=== PATIENT | female | born 1995 | race Caucasian/White ===

== ENCOUNTER 2017-02-13 23:13 | Emergency (ER) | payer OTHER ==
[2017-02-13 23:42] VITALS: BP 136/86; PULSE 106; O2SAT 98
--- NOTE | 2017-02-14 00:06 | ERPHSYRPT ---
- History of Present Illness Time Seen by Provider: 02/14/17 00:01 Source: patient, family Exam Limitations: no limitations Patient Subjective Stated Complaint: patient went on vacatiopns traveled on planes , buses and stayted in hotel room now has rash on insides of legs and arms that itches profusely and is spreading on her body Triage Nursing Assessment: rash on body, insides of legs and on both arms, x5 days, itches and continues to spread bumps resemble scabies Physician History: pt had exposres traveling and now has outbreak like scabies; discussed treatmetn options and she wishes to proceed with topical antiscabies tx and also steroids for inflammation; she has no GI symptoms, no wheezing or resp or swallowing symptoms; Timing/Duration: day(s) Quality: itchy Severity: moderate Location: torso, hands, extremities, generalized Possible Causes: no cause identified Modifying Factors: Improves With: scratching Associated Symptoms: denies symptoms, rash Allergies/Adverse Reactions: aspirin [From Aspirin Regimen Jose Luis/Calcium] Allergy (Intermediate, Unverified 01/26/12 11:27) Hives calcium carbonate [From Aspirin Regimen Jose Luis/Calcium] Allergy (Intermediate, Unverified 01/26/12 11:27) Hives Home Medications: Escitalopram Oxalate 10 mg [Lexapro 10 MG] 10 mg PO 01/26/12 [History] Symbicort 80-4.5 Mcg Inhaler 01/26/12 [History] Hx Tetanus, Diphtheria Vaccination/Date Given: Yes Hx Influenza Vaccination/Date Given: No Hx Pneumococcal Vaccination/Date Given: No Immunizations Up to Date: Yes - Review of Systems Constitutional: No Fever, No Chills Eyes: No Symptoms Ears, Nose, & Throat: No Symptoms Respiratory: No Cough, No Dyspnea Cardiac: No Chest Pain, No Edema, No Syncope Abdominal/Gastrointestinal: No Abdominal Pain, No Nausea, No Vomiting, No Diarrhea Genitourinary Symptoms: No Dysuria Musculoskeletal: No Back Pain, No Neck Pain Skin: Rash Neurological: No Dizziness, No Focal Weakness, No Sensory Changes Psychological: No Symptoms Endocrine: No Symptoms All Other Systems: Reviewed and Negative - Past Medical History Pertinent Past Medical History: No - Past Surgical History Past Surgical History: Yes Other Surgical History: Tonsills removed, septoplast , and sinus surgery - Social History Smoking Status: Never smoker Exposure to second hand smoke: No Drug Use: none Patient Lives Alone: No - Female History Hx Now: No - Nursing Vital Signs Nursing Vital Signs: Initial Vital Signs Temperature 98.3 F Temperature Source Oral Pulse Rate 106 Respiratory Rate 20 Blood Pressure [Right Arm] 136/86 Pain Intensity 5 - Physical Exam General Appearance: no apparent distress, alert Eye Exam: PERRL/EOMI, eyes nml inspection Ears, Nose, Throat Exam: normal ENT inspection, pharynx normal, moist mucous membranes Neck Exam: normal inspection, non-tender, supple, full range of motion Respiratory Exam: normal breath sounds, lungs clear, airway intact, No respiratory distress, No crackles/rales, No rhonchi, No wheezing, No stridor Cardiovascular Exam: regular rate/rhythm, normal heart sounds Gastrointestinal/Abdomen Exam: soft, mass, No tenderness Pelvic Exam: not done Rectal Exam: not done Back Exam: normal inspection, normal range of motion, No CVA tenderness, No vertebral tenderness Extremity Exam: normal inspection, normal range of motion Neurologic Exam: alert, oriented x 3, cooperative, normal mood/affect, sensation nml, No motor deficits Skin Exam: normal color, warm, dry SpO2 Interpretation: normal SpO2: 98 Oxygen Delivery: Room Air - Course Nursing assessment & vital signs reviewed: Yes - Progress Progress: unchanged Progress Note: 02/14/17 00:06 discussed treatmetn options and pt chooses to proceed with permethrin now - Departure Time of Disposition: 00:07 Departure Disposition: Home Clinical Impression: scabies or bedbugs bites Condition: Good Critical Care Time: No Instructions: Rash, Scabies Additional Instructions: this could be scabies or bedbugs bites; but may require some further allergy testing with your to determine if initial treatment does not work ; return meantime if any concerns. Prescriptions: Methylprednisolone Packet [Medrol Dosepack] 4 mg PO UD #1 packet
[2017-02-14] MEDS ORDERED: Elimite CREAM TP ONE (00:11)
== END 2017-02-14 00:33 | disposition home or self-care (01) ==
LOC: ED 23:13
DX: B86 Scabies (principal); S80.862A Insect bite (nonvenomous), left lower leg, initial encounter; S80.861A Insect bite (nonvenomous), right lower leg, initial encounter; R21 Rash and other nonspecific skin eruption
CPT/HCPCS: 99283; 99284; A9270-GY